=== PATIENT | female | born 1950 | race Caucasian/White ===

== ENCOUNTER 2016-08-24 13:44 | Emergency (ER) | payer MEDICARE ==
[2016-08-24] MEDS ORDERED: OXYCONTIN40 M2 PO (13:58)
[2016-08-24] MEDS ORDERED: CELEXA20 M2 PO (13:59)
[2016-08-24] MEDS ORDERED: CYCLOBENZAPRINE10 M1 PO (13:59)
[2016-08-24] MEDS ORDERED: COZAAR25 M1 PO (14:00)
[2016-08-24] MEDS ORDERED: KETALAR (14:00)
[2016-08-24] MEDS ORDERED: FIORICET 50-301 EAC1 PO (14:00)
[2016-08-24] MEDS ORDERED: TRAZODONE HCL50 M1 PO (14:00)
[2016-08-24] MEDS ORDERED: SYNTHROID150 MC1 PO (14:00)
[2016-08-24] MEDS ORDERED: VIVELLE-DOT1 EAC1 TD (14:01)
[2016-08-24] MEDS ORDERED: TOPROL XL25 M1 PO (14:01)
[2016-08-24] MEDS ORDERED: TRIAMCINOLONE A15 G4 TP (14:01)
[2016-08-24] MEDS ORDERED: THIAMINE HCL100 M2 PO (14:01)
[2016-08-24] MEDS ORDERED: PREVACID30 M2 PO (14:02)
[2016-08-24] MEDS ORDERED: DICLOFENAC SODI50 M1 PO (14:02)
[2016-08-24] MEDS ORDERED: NITROSTAT0.4 M1 (14:02)
[2016-08-24] MEDS ORDERED: NASONEX17 G1 (14:02)
[2016-08-24] MEDS ORDERED: VAGIFEM10 MC1 VG (14:03)
== END 2016-08-24 14:40 ==
LOC: EDMED 13:44
DX: G89.29 Other chronic pain (principal); Z76.0 Encounter for issue of repeat prescription; E78.5 Hyperlipidemia, unspecified; E03.9 Hypothyroidism, unspecified; Z95.0 Presence of cardiac pacemaker; Z79.890 Hormone replacement therapy; Z79.899 Other long term (current) drug therapy